=== PATIENT | male | born 1955 | race Caucasian/White ===

== ENCOUNTER 2022-10-01 09:45 | Emergency (ER) | payer BC, OTHER ==
[~2022-10-01] VITALS: Ht 182.9 cm; Wt 71.0 kg
[2022-10-01] MEDS ORDERED: LIDOCAINE 5% PATCH TOP SCH (13:30)
[2022-10-01] MEDS ORDERED: ACETAMINOPHEN 325MG TABLET PO ONE (13:30)
[2022-10-01] MEDS ORDERED: IBUPROFEN 400MG TABLET PO ONE (13:30)
[2022-10-01] MEDS ORDERED: AMLODIPINE 5MG TABLET PO ONE (13:30)
[2022-10-01] MEDS ORDERED: SODIUM CHLORIDE 0.9% 1,000 ML IV ONE (13:45)
[2022-10-01] MEDS ORDERED: LABETALOL 5MG/ML SYR 20 MG/4 ML SYRINGE IV ONE (16:15)
[2022-10-01 16:43] LABS: BASOPHILS % 0.7 % (0.0-2.0); EOSINOPHILS % 4.9 % (0.0-5.0); HEMATOCRIT. 36.7 % (42.0-52.0); HEMOGLOBIN. 12.6 g/dL (14.0-18.0); LYMPHOCYTES % 23.5 % (20.0-50.0); MEAN CORPUSCULAR HEMOGLOBIN 29.5 pg (28.0-32.0); MEAN PLATELET VOLUME 7.2 fl (7.4-10.4); MONOCYTES % 4.9 % (2.0-8.0); PLATELET 165 x1000/uL (130-400); RED BLOOD CELL COUNT 4.27 mill/uL (4.7-6.1); RED CELL DISTRIBUTION WIDTH 14.5 % (11.6-14.6)
[2022-10-01 16:55] LABS: CHLORIDE 111 mEq/L (98-107)
[2022-10-01] MEDS ORDERED: AMLO5TAB88 MT (17:06)
[2022-10-01] MEDS ORDERED: LIDO700A30 TP (17:10)
[2022-10-01] MEDS ORDERED: ACET-2708 MT (17:10)
[2022-10-01 17:54] VITALS: BP 180/101
== END 2022-10-01 17:59 | disposition home or self-care (01) ==
LOC: ER 09:58
DX: M54.9 Dorsalgia, unspecified (principal); I10 Essential (primary) hypertension; E11.9 Type 2 diabetes mellitus without complications; E78.00 Pure hypercholesterolemia, unspecified; W18.30XA Fall on same level, unspecified, initial encounter; Y93.89 Activity, other specified; Y92.89 Other specified places as the place of occurrence of the external cause; Y99.8 Other external cause status
CPT/HCPCS: 36415; 80053; 82962; 85025; 96361; 96374; 99284; J3490; J7030

== ENCOUNTER 2022-12-08 12:33 | Emergency (ER) | payer BC ==
[~2022-12-08] VITALS: Ht 170.2 cm; Wt 80.0 kg
[~2022-12-08 12:33] MED LIST: ACET-2708 MT; AMLO5TAB88 MT; LIDO700A30 TP
[2022-12-08 12:38] VITALS: BP 222/135
[2022-12-08 13:52] LABS: BASOPHILS % 1.2 % (0.0-2.0); EOSINOPHILS % 9.2 % (0.0-5.0); HEMATOCRIT. 41.6 % (42.0-52.0); HEMOGLOBIN. 14.1 g/dL (14.0-18.0); LYMPHOCYTES % 19.9 % (20.0-50.0); MEAN CORPUSCULAR HEMOGLOBIN 29.3 pg (28.0-32.0); MEAN CORPUSCULAR VOLUME 86.4 fL (80.0-94.0); MEAN PLATELET VOLUME 7.5 fl (7.4-10.4); MONOCYTES % 5.3 % (2.0-8.0); NEUTROPHILS % 64.4 % (40.0-76.0); PLATELET 248 x1000/uL (130-400); RED BLOOD CELL COUNT 4.81 mill/uL (4.7-6.1); RED CELL DISTRIBUTION WIDTH 14.5 % (11.6-14.6)
[2022-12-08 14:01] LABS: CHLORIDE 111 mEq/L (98-107)
[2022-12-08] MEDS ORDERED: ACETAMINOPHEN 325MG TABLET PO ONE (15:00)
[2022-12-08] MEDS ORDERED: AMLODIPINE 10MG TABLET PO ONE (15:15)
== END 2022-12-08 15:45 | disposition home or self-care (01) ==
LOC: ER 12:33
DX: R07.81 Pleurodynia (principal); E11.9 Type 2 diabetes mellitus without complications; I10 Essential (primary) hypertension
CPT/HCPCS: 36415; 71045; 80053; 85025; 93005; 99285

== ENCOUNTER 2025-08-28 18:02 | Inpatient (IN) | payer MEDICARE, MEDICAID ==
[~2025-08-28] VITALS: Ht 182.9 cm; Wt 82.6 kg
[~2025-08-28 18:02] MED LIST changes: -ACET-2708 MT; +AMLO1CAP5 PO; -AMLO5TAB88 MT; +BLOO-158; +FURO40TA5 PO; +GLIP5TAB22 PO; +LANC-1022 TP; -LIDO700A30 TP; +SERT-422 PO; +TRAZ-251 PO; +VALS160T28 PO
[2025-08-28 18:06] VITALS: O2SAT 96
[2025-08-28 19:10] LABS: BASOPHILS % 0.6 % (0.0-2.0); EOSINOPHILS % 6.4 % (0.0-5.0); INR 1.0; LYMPHOCYTES % 9.2 % (20.0-50.0); MEAN PLATELET VOLUME 7.1 fl (7.4-10.4); MONOCYTES % 4.5 % (2.0-8.0); NEUTROPHILS % 79.3 % (40.0-76.0); PLATELET 330 x1000/uL (130-400); RED BLOOD CELL COUNT 3.28 mill/uL (4.7-6.1); RED CELL DISTRIBUTION WIDTH 16.0 % (11.6-14.6)
[2025-08-28] MEDS: MORPHINE SULFATE 4 MG/ML INJ (FOR IV/IM USE) IV ONE (19:14)
[2025-08-28] MEDS: ONDANSETRON HCL 4MG/2ML INJ IV ONE (19:14)
[2025-08-28 19:17] LABS: CREATININE 2.8 mg/dL (0.6-1.3); UREA NITROGEN BLOOD 37 mg/dL (9-23)
[2025-08-28 19:18] LABS: ETHANOL BLOOD < 10 mg/dL (<10); PROTEIN TOTAL 6.3 g/dL (6.0-8.3)
[2025-08-28 19:19] LABS: ASPARTATE AMINOTRANSFERASE 26 IU/L (<34); BILIRUBIN DIRECT 0.3 mg/dL (<=3.0); HEMATOCRIT. 22.3 % (42.0-52.0); HEMOGLOBIN. 6.7 g/dL (14.0-18.0); TROPONIN I HIGH SENSITIVITY 16 ng/L (3.0-53)
[2025-08-28 19:20] LABS: BILIRUBIN TOTAL 0.6 mg/dL (0.1-1.0)
[2025-08-28 19:22] LABS: ADD RBC MORPHOLOGY YES
[2025-08-28] MEDS: PANTOPRAZOLE 80 MG in SODIUM CHLORIDE 0.9% 100 ML IV ONE (19:35)
[2025-08-28] MEDS: CEFTRIAXONE 1GM/50ML 50 ML IV ONE (20:50)
[2025-08-28] MEDS: SODIUM CHLORIDE 0.9% 1,000 ML IV ONE (20:52)
[2025-08-28] MEDS: AZITHROMYCIN 500MG/250ML 250 ML IV ONE (21:45)
[2025-08-28 21:47] LABS: PLATELET ESTIMATE NORMAL
[2025-08-28] MEDS ORDERED: ACETAMINOPHEN 325MG TABLET PO PRN ×2 (23:30)
[2025-08-28] MEDS ORDERED: ONDANSETRON HCL 4MG/2ML INJ IV PRN (23:30)
[2025-08-28] MEDS ORDERED: DIPHENHYDRAMINE 50MG/ML VIAL IV PRN (23:30)
[2025-08-28] MEDS ORDERED: MORPHINE SULFATE 2 MG/ML INJ (NOT FOR IM USE) IV PRN (23:30)
[2025-08-28] MEDS ORDERED: NALOXONE HCL 0.4MG/ML VIAL IV PRN (23:45)
[2025-08-29] VITALS (9 sets, daily range): BP systolic 118–172; BP diastolic 56–123; PULSE 50–91; RESP 15–19; TEMP 36.1–37.2; O2SAT 95–98
[2025-08-29] MEDS ORDERED: HYDR100T11 MT (02:59)
[2025-08-29] MEDS ORDERED: NEBI10TA10 PO (03:00)
[2025-08-29] MEDS: SODIUM CHLORIDE 0.9% 1,000 ML IV SCH (06:27)
[2025-08-29] MEDS: PANTOPRAZOLE SODIUM 40 MG/VIAL IV SCH (06:27)
[2025-08-29 08:04] LABS: CREATININE 2.6 mg/dL (0.6-1.3); UREA NITROGEN BLOOD 44 mg/dL (9-23)
[2025-08-29 08:05] LABS: BASOPHILS % 0.4 % (0.0-2.0); EOSINOPHILS % 5.3 % (0.0-5.0); HEMATOCRIT. 22.5 % (42.0-52.0); LYMPHOCYTES % 11.0 % (20.0-50.0); MEAN PLATELET VOLUME 7.0 fl (7.4-10.4); MONOCYTES % 6.4 % (2.0-8.0); NEUTROPHILS % 76.9 % (40.0-76.0); PLATELET 256 x1000/uL (130-400); RED BLOOD CELL COUNT 3.12 mill/uL (4.7-6.1); RED CELL DISTRIBUTION WIDTH 18.1 % (11.6-14.6)
[2025-08-29 08:06] LABS: PHOSPHORUS 3.2 mg/dL (2.5-4.9)
[2025-08-29 08:07] LABS: INR 1.0
[2025-08-29 08:13] LABS: HEMOGLOBIN. 6.9 g/dL (14.0-18.0)
[2025-08-30] VITALS: BP 132/62; PULSE 66; RESP 18; TEMP 36.3; O2SAT 96
[2025-08-30 03:42] LABS: INR 1.0
[2025-08-30 03:46] LABS: CREATININE 2.4 mg/dL (0.6-1.3)
[2025-08-30 03:47] LABS: UREA NITROGEN BLOOD 30 mg/dL (9-23)
[2025-08-30 03:48] LABS: ASPARTATE AMINOTRANSFERASE 18 IU/L (<34); PROTEIN TOTAL 5.5 g/dL (6.0-8.3)
[2025-08-30 03:49] LABS: BILIRUBIN DIRECT 0.4 mg/dL (<=3.0); BILIRUBIN TOTAL 0.9 mg/dL (0.1-1.0)
[2025-08-30 04:00] VITALS: BP 138/64; PULSE 72; RESP 17; TEMP 36.1; O2SAT 98
[2025-08-30 04:27] LABS: VITAMIN B12 SERUM 462 pg/mL (211-911)
[2025-08-30 04:38] LABS: FOLIC ACID (FOLATE) SERUM 4.55 ng/mL (>5.38)
[2025-08-30 04:57] LABS: HEPATITIS A AB IGM NEGATIVE (Negative)
[2025-08-30 04:58] LABS: HEPATITIS B CORE AB IGM NEGATIVE (Negative)
[2025-08-30 05:47] LABS: HEPATITIS C AB REACTIVE (Pos) (Negative)
[2025-08-30 08:00] VITALS: BP 139/80; PULSE 85; RESP 16; TEMP 36.6; O2SAT 97
[2025-08-30] MEDS ORDERED: PROPOFOL 200MG/20ML VIAL IV ONE (09:25)
[2025-08-30] MEDS: FOLIC ACID 1 MG in SODIUM CHLORIDE 0.9% 500 ML IV NR (10:00)
[2025-08-30] MEDS ORDERED: HYDROMORPHONE HCL/PF 1MG/ML INJ IV PRN (10:30)
[2025-08-30] MEDS ORDERED: ONDANSETRON HCL 4MG/2ML INJ IV PRN (10:30)
[2025-08-30 13:59] LABS: BASOPHILS % 1.0 % (0.0-2.0); EOSINOPHILS % 9.3 % (0.0-5.0); HEMATOCRIT. 27.5 % (42.0-52.0); HEMOGLOBIN. 8.6 g/dL (14.0-18.0); LYMPHOCYTES % 13.1 % (20.0-50.0); MEAN PLATELET VOLUME 7.4 fl (7.4-10.4); MONOCYTES % 4.8 % (2.0-8.0); NEUTROPHILS % 71.8 % (40.0-76.0); PLATELET 254 x1000/uL (130-400); RED BLOOD CELL COUNT 3.81 mill/uL (4.7-6.1); RED CELL DISTRIBUTION WIDTH 18.1 % (11.6-14.6)
[2025-08-30 16:00] VITALS: BP 127/71; PULSE 62; RESP 16; TEMP 36.2; O2SAT 98
[2025-08-30 20:00] VITALS: BP 166/90; PULSE 73; RESP 19; TEMP 36.9; O2SAT 98
[2025-08-30] MEDS: SUCRALFATE 1G TABLET PO SCH (21:06)
[2025-08-31] VITALS: BP 169/96; PULSE 75; RESP 19; TEMP 36.7; O2SAT 99
[2025-08-31] MEDS: HYDRALAZINE 20MG/ML VIAL IV PRN (02:28)
[2025-08-31 04:00] VITALS: BP 168/92; PULSE 73; RESP 20; TEMP 36.7; O2SAT 99
[2025-08-31 08:00] VITALS: BP 115/76; PULSE 76; RESP 17; TEMP 35.6; O2SAT 96
[2025-08-31] MEDS: FOLIC ACID 1MG TABLET PO SCH (08:37)
[2025-08-31 12:00] VITALS: BP 130/76; PULSE 88; RESP 16; TEMP 36.1; O2SAT 96
[2025-08-31 16:00] VITALS: BP 146/86; PULSE 77; RESP 17; TEMP 36; O2SAT 96
[2025-08-31 20:00] VITALS: BP 182/96; PULSE 76; RESP 19; TEMP 36.7; O2SAT 98
[2025-09-01 00:30] VITALS: BP 176/92; PULSE 76; RESP 19; TEMP 36.7; O2SAT 96
[2025-09-01 04:00] VITALS: BP 168/93; PULSE 85; RESP 19; TEMP 36.8; O2SAT 98
[2025-09-01 08:00] VITALS: BP 178/93; PULSE 59; RESP 19; TEMP 36.7; O2SAT 98
[2025-09-01 12:00] VITALS: BP 180/102; PULSE 51; RESP 18; TEMP 36.5; O2SAT 98
[2025-09-01 15:04] VITALS: BP 156/88; RESP 18; TEMP 97.4
[2025-09-01] MEDS ORDERED: SUCR1TAB PO (15:22)
[2025-09-01] MEDS ORDERED: OMEP40CA20 PO (15:22)
[2025-09-01 16:00] VITALS: BP 172/92; PULSE 50; TEMP 37.4
[2025-09-04] MEDS ORDERED: AMOX1TAB16 MT (15:24)
[2025-09-04] MEDS ORDERED: DOXY-461 MT (15:24)
[2025-09-04] MEDS ORDERED: CARV3.1242 MT (15:24)
[2025-09-04] MEDS ORDERED: ALBU18HF2 IH (15:24)
[2025-09-04] MEDS ORDERED: HYDR100T11 MT (15:24)
[2025-09-04] MEDS ORDERED: OMEP40CA20 PO (15:24)
[2025-09-04] MEDS ORDERED: SUCR1TAB PO (15:24)
[2025-09-04] MEDS ORDERED: FERR325T6 MT (15:25)
[2025-09-04] MEDS ORDERED: TAMS-54 MT (15:26)
[2025-09-05] MEDS ORDERED: FINA5TAB11 MT (15:19)
[2025-09-05] MEDS ORDERED: SUCR1TAB MT (15:19)
[2025-09-05] MEDS ORDERED: HYDR100T11 MT (15:19)
[2025-09-05] MEDS ORDERED: P20 MT (15:19)
[2025-09-05] MEDS ORDERED: AMOX1TAB16 MT (15:19)
[2025-09-05] MEDS ORDERED: FERR325T6 MT (15:19)
[2025-09-05] MEDS ORDERED: TAMS-54 MT (15:19)
[2025-09-05] MEDS ORDERED: PROT40 MT (15:19)
[2025-09-05] MEDS ORDERED: GLYC10.7 INH (15:19)
[2025-09-05] MEDS ORDERED: CARV3.1242 MT (15:19)
[2025-09-05] MEDS ORDERED: ALBU18HF2 IH (15:19)
[2025-09-05] MEDS ORDERED: FLUC200T51 MT (15:19)
== END 2025-09-01 23:14 | disposition home or self-care (01) | DRG 381 ==
LOC: ER 18:02 → 6WST 20:58 → EDBEDREQTM 21:08 → EDBEDREQ 21:08 → ENRESERV 22:13
PROVIDERS: ADMIT Internal Medicine; ATTEND Internal Medicine
PROC: 30233N1 Transfusion of Nonautologous Red Blood Cells into Peripheral Vein, Percutaneous Approach (ICD-10-PCS; 2025-08-28)
PROC: 0DB78ZX Excision of Stomach, Pylorus, Via Natural or Artificial Opening Endoscopic, Diagnostic (ICD-10-PCS; principal; 2025-08-30)
DX: K22.10 Ulcer of esophagus without bleeding (principal); I85.10 Secondary esophageal varices without bleeding; K92.0 Hematemesis; N17.9 Acute kidney failure, unspecified; K74.60 Unspecified cirrhosis of liver; D50.9 Iron deficiency anemia, unspecified; E11.22 Type 2 diabetes mellitus with diabetic chronic kidney disease; I12.9 Hypertensive chronic kidney disease with stage 1 through stage 4 chronic kidney disease, or unspecified chronic kidney disease; N18.9 Chronic kidney disease, unspecified; K25.9 Gastric ulcer, unspecified as acute or chronic, without hemorrhage or perforation; E11.9 Type 2 diabetes mellitus without complications; K31.89 Other diseases of stomach and duodenum; R33.9 Retention of urine, unspecified; K44.9 Diaphragmatic hernia without obstruction or gangrene; Z79.899 Other long term (current) drug therapy; Z96.649 Presence of unspecified artificial hip joint; K29.50 Unspecified chronic gastritis without bleeding
CPT/HCPCS: 36415; 71045; 74176; 76700; 80048; 80076; 80320; 82140; 82607; 82746; 83036; 83540; 83550; 83605; 83735; 83880; 84100; 84484; 85014; 85018; 85025; 85027; 85044; 86705; 86709; 86850; 86900; 86920; 87340; 88305; 96365; 96366; 96367; 99285; A4606; A4615; G0378; J0360; J0456; J0696; J2270; J2405; J2470; J2704; J3490; J7030; J7040; J7050; P9016; G0480